=== PATIENT | male | born 1995 | race Hispanic/Latino ===

== ENCOUNTER 2018-06-27 19:24 | Emergency (ER) | payer OTHER | END 2018-06-27 20:17 | disposition home or self-care (01) | LOC: EDH 19:24 → EDBD 19:24 → EDH 20:17 | DX: S61.012A Laceration without foreign body of left thumb without damage to nail, initial encounter (principal); R03.0 Elevated blood-pressure reading, without diagnosis of hypertension; W26.0XXA Contact with knife, initial encounter; Y93.G3 Activity, cooking and baking; Y92.511 Restaurant or cafe as the place of occurrence of the external cause; Y99.8 Other external cause status | CPT/HCPCS: 73140 ==

== ENCOUNTER 2019-09-11 08:27 | Emergency (ER) | payer SELFPAY ==
[2019-09-11] MEDS ORDERED: KETOROLAC TROMETHAMINE 30MG/ML ONE (09:15)
== END 2019-09-11 10:17 | disposition home or self-care (01) ==
LOC: EDH 08:27
DX: S92.342A Displaced fracture of fourth metatarsal bone, left foot, initial encounter for closed fracture (principal); M79.671 Pain in right foot; X50.1XXA Overexertion from prolonged static or awkward postures, initial encounter; Y93.89 Activity, other specified; Y92.89 Other specified places as the place of occurrence of the external cause; Y99.8 Other external cause status
CPT/HCPCS: 29515; 73610; 73630 ×2; 96372; 99284; J1885